=== PATIENT | male | born 1980 | race Caucasian/White ===

== ENCOUNTER 2019-08-23 15:40 | Inpatient (IN) | payer BC ==
[2019-08-23] MEDS ORDERED: Iopamidol 755 Mg/ML 200 ML Bottle IV ONE (15:44)
[2019-08-23 16:17] LABS: CHLORIDE,CL 99 mEq/L (98-106); SODIUM,NA 136 mEq/L (136-145)
[2019-08-23] MEDS ORDERED: Temazepam 15 MG Cap PO PRN (16:28)
[2019-08-23] MEDS ORDERED: Morphine 2 MG/ML Syringe IVPUSH PRN (16:28)
[2019-08-23] MEDS: Sodium Chloride 0.9% 1,000 ML IV SCH (17:03)
[2019-08-23] MEDS: metroNIDAZOLE/Normal Saline 500 MG in Premix Bag 1 BAG IV SCH (17:04)
[2019-08-23] MEDS ORDERED: Ondansetron 4 MG/2 ML SDV IV PRN (17:30)
[2019-08-23] MEDS: Levofloxacin/Dextrose 5%-Water 500 MG in Premix Bag 1 BAG IV SCH (18:57)
[2019-08-23] MEDS: Ibuprofen 200 MG Tab PO PRN (20:46)
[2019-08-23] MEDS: Acetaminophen 325 MG Tab PO PRN (20:47)
[2019-08-24] MEDS: Sodium Chloride 0.9% 1,000 ML IV SCH ×3 (00:24→20:11)
[2019-08-24] MEDS: metroNIDAZOLE/Normal Saline 500 MG in Premix Bag 1 BAG IV SCH ×3 (00:25→16:46)
[2019-08-24] MEDS: Acetaminophen 325 MG Tab PO PRN ×4 (03:12→18:16)
[2019-08-24] MEDS: Ibuprofen 200 MG Tab PO PRN ×3 (03:13→16:06)
[2019-08-24 08:05] LABS: CHLORIDE,CL 103 mEq/L (98-106); SODIUM,NA 138 mEq/L (136-145)
[2019-08-24] MEDS: Pantoprazole 40 MG Vial IVPUSH SCH (10:33)
--- NOTE | 2019-08-24 14:07 | PCM.PN ---
- General Info Date of Service: 08/24/19 Admission Dx/Problem (Free Text): Acute Diverticulitis Functional Status: Reports: Pain Controlled, Tolerating Diet, Ambulating - Review of Systems General: Reports: Fever, Fatigue, Malaise HEENT: Reports: No Symptoms Pulmonary: Denies: Shortness of Breath, Cough Cardiovascular: Denies: Chest Pain, Edema, Lightheadedness Gastrointestinal: Reports: Abdominal Pain (states improved since yesterday). Denies: Nausea, Vomiting Genitourinary: Reports: No Symptoms Musculoskeletal: Reports: No Symptoms Skin: Reports: No Symptoms Neurological: Reports: No Symptoms Psychiatric: Reports: No Symptoms - Patient Data Vitals - Most Recent: Last Vital Signs Temp 101.3 F H 08/24/19 10:19 Pulse 92 08/24/19 03:23 Resp 16 08/24/19 03:23 BP 113/58 L 08/24/19 03:23 Pulse Ox 100 08/24/19 03:23 Weight - Most Recent: 462 lb I&O - Last 24 Hours: Intake & Output 08/23/19 08/24/19 08/24/19 22:59 06:59 14:59 Intake Total 100 1419 1720 Output Total 500 550 900 Balance -400 869 820 Lab Results Last 24 Hours: Laboratory Results - last 24 hr 08/23/19 08/23/19 08/23/19 Range/Units 15:52 15:52 15:52 WBC 15.4 H (5.0-10.0) 10^3/uL RBC 5.30 (4.50-6.00) 10^6/uL Hgb 15.8 (14.0-18.0) g/dL Hct 46.5 (40.0-54.0) % MCV 87.7 (82.0-94.0) fL MCH 29.8 (27.0-32.0) pg MCHC 34.0 (33.0-38.0) g/dL RDW Coeff of Emi 14.9 (11.0-15.0) % Plt Count 226 (150-400) 10^3/uL Neut % (Auto) (35-85) % Lymph % (Auto) (10-55) % [place] % (Auto) (0-16) % Eos % (Auto) (0-5) % Baso % (Auto) (0-3) % Neut # (Auto) (1.80-7.00) 10^3/uL Lymph # (Auto) (1.00-4.80) 10^3/uL [place] # (Auto) (0.00-0.80) 10^3/uL Eos # (Auto) (0.00-0.45) 10^3/uL Baso # (Auto) 10^3/uL Add Manual Diff Yes Neutrophils % (Manual) 70 (35-85) % Band Neutrophils % 19 H (0-5) % Lymphocytes % (Manual) 5 L (21-55) % Monocytes % (Manual) 5 (2-12) % Eosinophils % (Manual) 0 (0-5) % Basophils % (Manual) 1 (0-3) % Sodium 136 (136-145) mEq/L Potassium 3.7 (3.5-5.0) mEq/L Chloride 99 (98-106) mEq/L Carbon Dioxide 27 (21-32) mmol/L BUN 14 (7-18) mg/dL Creatinine 1.2 (0.7-1.3) mg/dL Est Cr Clr Drug Dosing TNP Estimated GFR (MDRD) > 60 (>=60) mL/min Glucose 116 H (75-99) mg/dL Lactic Acid 1.4 (0.4-2.0) mmol/L Calcium 9.0 (8.4-10.1) mg/dL Total Bilirubin 0.6 (0.0-1.0) mg/dL AST 25 (15-37) U/L ALT 54 (12-78) U/L Alkaline Phosphatase 72 (46-116) U/L C-Reactive Protein 4.8 H (0.2-0.8) mg/dL Total Protein 7.7 (6.4-8.2) g/dL Albumin 3.6 (3.4-5.0) g/dL Amylase 62 (25-115) U/L Urine Color (YELLOW) Urine Appearance (CLEAR) Urine pH (4.5-8.0) Ur Specific [place] (1.003-1.020) Urine Protein (NEGATIVE) mg/dL Urine Glucose (UA) (NEGATIVE) mg/dL Urine Ketones (NEGATIVE) mg/dL Urine Occult Blood (NEGATIVE) Urine Nitrite (NEGATIVE) Urine Bilirubin (NEGATIVE) Urine Urobilinogen (0.2-1.0) EU/dL Ur Leukocyte Esterase (NEGATIVE) Urine RBC (0-5) /HPF Urine WBC (0-5) /HPF Ur Epithelial Cells (NOT SEEN) /HPF Urine Sperm (NOT SEEN) /HPF 08/23/19 08/24/19 08/24/19 Range/Units 16:04 07:50 07:50 WBC 10.1 H (5.0-10.0) 10^3/uL RBC 4.89 (4.50-6.00) 10^6/uL Hgb 14.5 (14.0-18.0) g/dL Hct 43.5 (40.0-54.0) % MCV 89.0 (82.0-94.0) fL MCH 29.7 (27.0-32.0) pg MCHC 33.3 (33.0-38.0) g/dL RDW Coeff of Emi 15.5 H (11.0-15.0) % Plt Count 183 (150-400) 10^3/uL Neut % (Auto) 81.3 (35-85) % Lymph % (Auto) 10.7 (10-55) % [place] % (Auto) 7.6 (0-16) % Eos % (Auto) 0.1 (0-5) % Baso % (Auto) 0.3 (0-3) % Neut # (Auto) 8.21 H (1.80-7.00) 10^3/uL Lymph # (Auto) 1.08 (1.00-4.80) 10^3/uL [place] # (Auto) 0.77 (0.00-0.80) 10^3/uL Eos # (Auto) 0.01 (0.00-0.45) 10^3/uL Baso # (Auto) 0.03 10^3/uL Add Manual Diff Neutrophils % (Manual) (35-85) % Band Neutrophils % (0-5) % Lymphocytes % (Manual) (21-55) % Monocytes % (Manual) (2-12) % Eosinophils % (Manual) (0-5) % Basophils % (Manual) (0-3) % Sodium 138 (136-145) mEq/L Potassium 3.3 L (3.5-5.0) mEq/L Chloride 103 (98-106) mEq/L Carbon Dioxide 27 (21-32) mmol/L BUN 14 (7-18) mg/dL Creatinine 1.1 (0.7-1.3) mg/dL Est Cr Clr Drug Dosing 107.94 Estimated GFR (MDRD) > 60 (>=60) mL/min Glucose 107 H (75-99) mg/dL Lactic Acid (0.4-2.0) mmol/L Calcium 8.3 L (8.4-10.1) mg/dL Total Bilirubin (0.0-1.0) mg/dL AST (15-37) U/L ALT (12-78) U/L Alkaline Phosphatase (46-116) U/L C-Reactive Protein 9.1 H (0.2-0.8) mg/dL Total Protein (6.4-8.2) g/dL Albumin (3.4-5.0) g/dL Amylase (25-115) U/L Urine Color Yellow (YELLOW) Urine Appearance Clear (CLEAR) Urine pH 6.0 (4.5-8.0) Ur Specific [place] >= 1.030 H (1.003-1.020) Urine Protein 30 H (NEGATIVE) mg/dL Urine Glucose (UA) Negative (NEGATIVE) mg/dL Urine Ketones Negative (NEGATIVE) mg/dL Urine Occult Blood Negative (NEGATIVE) Urine Nitrite Negative (NEGATIVE) Urine Bilirubin Negative (NEGATIVE) Urine Urobilinogen 0.2 (0.2-1.0) EU/dL Ur Leukocyte Esterase Negative (NEGATIVE) Urine RBC Not seen (0-5) /HPF Urine WBC Not seen (0-5) /HPF Ur Epithelial Cells Occasional H (NOT SEEN) /HPF Urine Sperm Moderate H (NOT SEEN) /HPF Kai Results Last 24 Hours: Microbiology 08/23/19 20:28 Occult Blood - Preliminary Stool / Feces 08/23/19 22:24 C. difficile DNA Amplification - Final Stool / Feces NEGATIVE CDIFF BY DNA REFERENCE RANGE: NEGATIVE 08/23/19 22:24 Stool for WBCs - Final Stool / Feces NO WBC SEEN REFERENCE RANGE: NO WBC SEEN Med Orders - Current: Current Medications Acetaminophen (Tylenol) 650 mg PO Q4H PRN PRN Reason: Fever Levofloxacin/Dextrose 500 mg/ (Premix) 100 mls @ 100 mls/hr IV Q24H [facility] Last Admin: 08/23/19 18:57 Dose: 100 mls/hr Metronidazole 500 mg/ Premix 100 mls @ 100 mls/hr IV Q8H [facility] Last Admin: 08/24/19 09:21 Dose: 100 mls/hr Sodium Chloride (Normal Saline) 1,000 mls @ 125 mls/hr IV ASDIRECTED [facility] Last Admin: 08/24/19 10:36 Dose: 125 mls/hr Ibuprofen (Motrin) 400 mg PO Q6H PRN PRN Reason: Fever Last Admin: 08/24/19 09:19 Dose: 400 mg Morphine Sulfate (Morphine) 2 mg IVPUSH Q2H PRN PRN Reason: Pain (severe 7-10) Ondansetron HCl (Zofran) 8 mg IV Q6H PRN PRN Reason: Nausea/Vomiting Pantoprazole Sodium (Protonix Iv) 40 mg IVPUSH Q24H [facility] Last Admin: 08/24/19 10:33 Dose: 40 mg Temazepam (Restoril) 15 mg PO BEDTIME PRN PRN Reason: Sleep Discontinued Medications Acetaminophen (Tylenol) 650 mg PO Q6H PRN PRN Reason: Fever Last Admin: 08/24/19 09:20 Dose: 650 mg Iopamidol (Isovue-370 (76%)) 162 ml IV ONETIME ONE Stop: 08/23/19 15:45 Last Admin: 08/23/19 16:24 Dose: 162 ml - Exam General: Alert, Oriented HEENT: Mucous Membr. Moist/[place] Neck: Supple Lungs: Clear to Auscultation, Normal Respiratory Effort Cardiovascular: Regular Rate, Regular Rhythm GI/Abdominal Exam: Normal Bowel Sounds, Soft, Tender (LLQ) Skin: Warm, Dry Neurological: No New Focal Deficit Sepsis Event Note - Focused Exam Vital Signs: Vital Signs Temp Temp Pulse Resp BP Pulse Ox 08/24/19 10:19 101.3 F H 08/24/19 09:19 100.3 F 08/24/19 04:13 97.6 F 08/24/19 03:23 97.8 F 92 16 113/58 L 100 08/24/19 03:13 97.8 F Date Exam was Performed: 08/24/19 Time Exam was Performed: 14:02 - Problem List & Annotations (1) Gastroenteritis SNOMED Code(s): 39651183 Code(s): K52.9 - NONINFECTIVE GASTROENTERITIS AND COLITIS, UNSPECIFIED Status: Acute Priority: High Current Visit: Yes - Problem List Review Problem List Initiated/Reviewed/Updated: Yes - My Orders Last 24 Hours: My Active Orders 08/24/19 10:15 Pantoprazole [ProTONIX IV] 40 mg IVPUSH Q24H 08/24/19 Dinner Regular Diet [DIET] - Assessment Assessment:: Gastroenteritis/Colitis - Plan Plan:: Patient admits to feeling much better this am versus yesterday. Still has dull pain in lower quadrant, gets crampy at times. Has had loose stools yet. Stools collected last evening. Negative for C Diff and WBC. CT scan negative for diverticulitis, shows inflammatory changes consistent with gastroenteritis. WBC improved to day to 10.1. Potassium mildly low at 3.3. CRP increased to 9.1. Temp spiked again this am to 101.3. Will continue with IV Meds. Increase diet. Monitor fever. Repeat labs in am. Possible discharge home tomorrow.
[2019-08-24] MEDS: Levofloxacin/Dextrose 5%-Water 500 MG in Premix Bag 1 BAG IV SCH (17:54)
[2019-08-25] MEDS: metroNIDAZOLE/Normal Saline 500 MG in Premix Bag 1 BAG IV SCH ×2 (00:19→09:00)
[2019-08-25] MEDS: Ibuprofen 200 MG Tab PO PRN (05:02)
[2019-08-25] MEDS: Sodium Chloride 0.9% 1,000 ML IV SCH (05:03)
[2019-08-25 07:26] LABS: CHLORIDE,CL 106 mEq/L (98-106)
[2019-08-25 07:31] LABS: SODIUM,NA 139 mEq/L (136-145)
[2019-08-25] MEDS: Pantoprazole 40 MG Vial IVPUSH SCH (08:52)
--- NOTE | 2019-08-25 16:04 | PCM.DCSUM1 ---
Discharge Summary - Hospital Course Free Text/Narrative:: Esvin is a 38 year old who presented to see Dr. Crooks with complaints of fever, abdominal pain for approximately 18 hours. States came on quite suddenly. 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 No other members of the household ill. Temp was high at nearly 103 at home. Frequent diarrhea stools at home. Exam showed pain in the left lower quadrant. Admitted with suspected acute diverticulitis. Obtain lab, CT scan of abdomen. Start IV Levaquin and Flagyl. Diagnosis: Stroke: No Modified [place] Scale: No Symptoms at All Modified [place] Scale Score: 0 - Discharge Data Discharge Date: 08/25/19 Discharge Disposition: Home, Self-Care 01 Condition: Good - Referral to Home Health Primary Care Physician: Lucian Crooks MD - Discharge Diagnosis/Problem(s) (1) Gastroenteritis SNOMED Code(s): 56496927 ICD Code: K52.9 - NONINFECTIVE GASTROENTERITIS AND COLITIS, UNSPECIFIED Status: Acute Priority: High - Patient Summary/Data Complications: none Hospital Course: Patient is feeling better today. Does still have low grade fevers at times. Feels more achy and ill when has fever. Less cramping than on admit. Still mildly tender to lower quadrants. No guarding with exam. Stools are more soft than watery now. Labs improved. WBC 8.9 this am. Hemoglobin stable at 13.4. CRP 7.9. Electrolytes normal. Appetite is good, has been able to advance diet without nausea. Will discharge home on Levaquin for 5 days. Follow up with Dr. Crooks in one week. - Patient Instructions Diet: Usual Diet as Tolerated Activity: As Tolerated - Discharge Plan *PRESCRIPTION DRUG MONITORING PROGRAM REVIEWED*: No *COPY OF PRESCRIPTION DRUG MONITORING REPORT IN PATIENT MARY ALICE: No Prescriptions/Med Rec: Levofloxacin [Levaquin] 500 mg PO DAILY #5 tablet Home Medications: Home Meds Aspirin [Halfprin] 81 mg PO DAILY 08/23/19 [History] Cholecalciferol (Vitamin D3) [Vitamin D] 2,000 units PO DAILY 08/23/19 [History] Lisinopril/Hydrochlorothiazide [Lisinopril-Hctz 20-25 mg Tab] 1 tab PO DAILY [History] Esomeprazole Magnesium [Nexium] 20 mg PO DAILY 08/24/19 [History] Levofloxacin [Levaquin] 500 mg PO DAILY #5 tablet 08/25/19 [Rx] Oxygen Therapy Mode: Nasal Cannula Referrals: Lucian Crooks MD [Primary Care Provider] - (Follow up with Dr. Crooks in 10 days) - Discharge Summary/Plan Comment DC Time >30 min.: No - General Info Date of Service: 08/25/19 Admission Dx/Problem (Free Text: Acute Diverticulitis Functional Status: Reports: Pain Controlled, Tolerating Diet, Ambulating, Urinating - Review of Systems General: Reports: Fever, Malaise HEENT: Denies: Ear Pain, Headaches, Sinus Congestion Pulmonary: Denies: Shortness of Breath, Cough Cardiovascular: Denies: Chest Pain, Edema, Lightheadedness Gastrointestinal: Reports: Abdominal Pain (crampy). Denies: Nausea, Vomiting Genitourinary: Reports: No Symptoms Musculoskeletal: Reports: No Symptoms Skin: Reports: No Symptoms Neurological: Reports: No Symptoms - Patient Data Vitals - Most Recent: Last Vital Signs Temp 98.5 F 08/25/19 08:00 Pulse 68 08/25/19 08:00 Resp 16 08/25/19 08:00 BP 127/70 08/25/19 08:00 Pulse Ox 98 08/25/19 08:00 Weight - Most Recent: 462 lb I&O - Last 24 hours: Intake & Output 08/25/19 08/25/19 08/25/19 06:59 14:59 22:59 Intake Total 1500 Output Total 600 Balance 900 Lab Results - Last 24 hrs: Laboratory Results - last 24 hr 08/25/19 08/25/19 Range/Units 05:11 05:11 WBC 8.9 (5.0-10.0) 10^3/uL RBC 4.54 (4.50-6.00) 10^6/uL Hgb 13.4 L (14.0-18.0) g/dL Hct 40.6 (40.0-54.0) % MCV 89.4 (82.0-94.0) fL MCH 29.5 (27.0-32.0) pg MCHC 33.0 (33.0-38.0) g/dL RDW Coeff of Emi 15.3 H (11.0-15.0) % Plt Count 177 (150-400) 10^3/uL Neut % (Auto) 61.4 (35-85) % Lymph % (Auto) 24.5 (10-55) % [place] % (Auto) 11.6 (0-16) % Eos % (Auto) 1.9 (0-5) % Baso % (Auto) 0.6 (0-3) % Neut # (Auto) 5.45 (1.80-7.00) 10^3/uL Lymph # (Auto) 2.17 (1.00-4.80) 10^3/uL [place] # (Auto) 1.03 H (0.00-0.80) 10^3/uL Eos # (Auto) 0.17 (0.00-0.45) 10^3/uL Baso # (Auto) 0.05 10^3/uL Sodium 139 (136-145) mEq/L Potassium 3.5 (3.5-5.0) mEq/L Chloride 106 (98-106) mEq/L Carbon Dioxide 26 (21-32) mmol/L BUN 14 (7-18) mg/dL Creatinine 1.1 (0.7-1.3) mg/dL Est Cr Clr Drug Dosing 107.94 mL/min Estimated GFR (MDRD) > 60 (>=60) mL/min Glucose 105 H (75-99) mg/dL Calcium 7.9 L (8.4-10.1) mg/dL C-Reactive Protein 7.9 H (0.2-0.8) mg/dL CATHIE Results - Last 24 hrs: Microbiology 08/23/19 15:53 Aerobic Blood Culture - Preliminary Blood - Venous - Lab Draw NO GROWTH AFTER 1 DAY Anaerobic Blood Culture - Preliminary NO GROWTH AFTER 1 DAY 08/23/19 15:52 Aerobic Blood Culture - Preliminary Blood - Venous NO GROWTH AFTER 1 DAY Anaerobic Blood Culture - Preliminary NO GROWTH AFTER 1 DAY 08/23/19 20:28 Occult Blood - Final Stool / Feces Med Orders - Current: Current Medications Discontinued Medications Acetaminophen (Tylenol) 650 mg PO Q6H PRN PRN Reason: Fever Last Admin: 08/24/19 09:20 Dose: 650 mg Acetaminophen (Tylenol) 650 mg PO Q4H PRN PRN Reason: Fever Last Admin: 08/24/19 18:16 Dose: 650 mg Levofloxacin/Dextrose 500 mg/ (Premix) 100 mls @ 100 mls/hr IV Q24H [facility] Last Admin: 08/24/19 17:54 Dose: 100 mls/hr Metronidazole 500 mg/ Premix 100 mls @ 100 mls/hr IV Q8H [facility] Last Admin: 08/25/19 09:00 Dose: Not Given Sodium Chloride (Normal Saline) 1,000 mls @ 125 mls/hr IV ASDIRECTED [facility] Last Admin: 08/25/19 05:03 Dose: 125 mls/hr Ibuprofen (Motrin) 400 mg PO Q6H PRN PRN Reason: Fever Last Admin: 08/25/19 05:02 Dose: 400 mg Iopamidol (Isovue-370 (76%)) 162 ml IV ONETIME ONE Stop: 08/23/19 15:45 Last Admin: 08/23/19 16:24 Dose: 162 ml Morphine Sulfate (Morphine) 2 mg IVPUSH Q2H PRN PRN Reason: Pain (severe 7-10) Ondansetron HCl (Zofran) 8 mg IV Q6H PRN PRN Reason: Nausea/Vomiting Pantoprazole Sodium (Protonix Iv) 40 mg IVPUSH Q24H [facility] Last Admin: 08/25/19 08:52 Dose: 40 mg Temazepam (Restoril) 15 mg PO BEDTIME PRN PRN Reason: Sleep - Exam General: Reports: Alert, Oriented HEENT: Reports: Mucous Membr. Moist/[place] Neck: Reports: Supple, Thyromegaly Lungs: Reports: Normal Respiratory Effort Cardiovascular: Reports: Regular Rate, Regular Rhythm GI/Abdominal Exam: Normal Bowel Sounds, Soft, Tender (LLQ) Extremities: Normal Inspection, No Pedal Edema Skin: Reports: Warm, Dry Neurological: Reports: No New Focal Deficit
== END 2019-08-25 09:40 | disposition home or self-care (01) | DRG 249 ==
LOC: CC.MS 15:40 → UNDOADMIN 15:40 → CC.MS 15:41
PROVIDERS: ADMIT Family Medicine; ATTEND Family Medicine
DX: K52.9 Noninfective gastroenteritis and colitis, unspecified (principal); E78.5 Hyperlipidemia, unspecified; I10 Essential (primary) hypertension; E66.01 Morbid (severe) obesity due to excess calories; G47.33 Obstructive sleep apnea (adult) (pediatric); F17.210 Nicotine dependence, cigarettes, uncomplicated; Z79.82 Long term (current) use of aspirin; Z79.899 Other long term (current) drug therapy; Z68.43 Body mass index [BMI] 50.0-59.9, adult
CPT/HCPCS: 36415; 74177; 80048; 80053; 81001; 82150; 82270; 83605; 85025; 86140; 87040; 87045; 87046; 87493; 89055; A9270-GY; C9113; J1956; J3490; J7030; Q9967

== ENCOUNTER → 2020-03-09 | Day surgery (SDC) | payer BC ==
[~2020-03-09] MED LIST: Ketamine 200 MG/20 ML MDV IV ONE; Midazolam 1 MG/ML 2 ML SDV IV ONE; Propofol 200 MG/20 ML SDV IV ONE; fentaNYL 100 MCG/2 ML SDV IV ONE
[2020-03-09] MEDS: Lactated Ringers 1,000 ML IV SCH (10:25)
--- NOTE | 2020-03-09 14:57 | OR ---
DATE OF OPERATION: 03/09/2020 PREOPERATIVE DIAGNOSIS: RECURRENT ENTERITIS. POSTOPERATIVE DIAGNOSIS: RECURRENT ENTERITIS. SURGEON: Lucian Crooks MD PROCEDURE: FULL-LENGTH COLONOSCOPY WITH FORCEPS POLYP REMOVAL X5. ANESTHESIA: MAC. COMPLICATIONS: None. SPECIMEN: Five small sessile polyps, each 3 mm or less. FINDINGS: 1. Full-length colonoscopy. 2. Five small sessile polyps, see report. 3. Internal hemorrhoids. 4. No signs of active colitis. 5. No signs of obvious diverticular disease. RECOMMENDATIONS: We will continue to follow medically. If the patient continues to have recurrent enteritis, we may need an upper GI with small-bowel follow-through. INDICATIONS: The patient has had 2 episodes in the last 6 months. There was fairly significant gastroenteritis. We were suspicious of diverticulitis and so we recommended a colonoscopy. DESCRIPTION OF PROCEDURE: The patient was prepped and draped, placed in the left lateral decubitus position. A lubricated Olympus colonoscope was inserted and with relative ease advanced to the cecum. Direct visualization of the ileocecal valve and appendiceal orifice was accomplished. The bowel prep was fine. Upon withdrawal of the scope, the cecum, ascending and transverse colon appeared completely benign. At the splenic flexure, the patient had a small flat sessile polyp removed with forceps in its entirety. Second one noted in the early sigmoid as well, also removed with forceps. Throughout the sigmoid, there were no signs of diverticula. There was no active colitis, inflammatory changes, or worrisome polyps. He had 2 more small sessile polyps in the rectosigmoid junction, one in the proximal rectal vault, also all removed easily with the forceps. No other lesions were seen. Retroflexion of the scope in the rectum showed some perianal hemorrhoid disease which is significant. Air was then suctioned, scope removed without complication. NERY/JAKOB /[id number]
== END ==
LOC: CC.SDS 10:10
PROVIDERS: ATTEND Family Medicine
DX: K63.5 Polyp of colon (principal); K52.9 Noninfective gastroenteritis and colitis, unspecified; K64.8 Other hemorrhoids; G47.33 Obstructive sleep apnea (adult) (pediatric); E66.01 Morbid (severe) obesity due to excess calories; E78.5 Hyperlipidemia, unspecified; I10 Essential (primary) hypertension; F17.210 Nicotine dependence, cigarettes, uncomplicated; Z79.82 Long term (current) use of aspirin; Z79.899 Other long term (current) drug therapy
CPT/HCPCS: 00811; J2250; J2704; J3010; J7120